=== PATIENT | male | born 1940 | race Caucasian/White ===

== ENCOUNTER 2017-01-10 16:00 | Emergency (ER) | payer OTHER, MEDICARE ==
[~2017-01-10] VITALS: Ht 193 cm; Wt 95.0 kg
[~2017-01-10 16:00] MED LIST: CIPR500T2 PO; DARV PO; GLUCTAB47 PO; LORC10TA PO; MEDR4PAK3 PO; MELA3TAB14; PIOG15 PO; PRIM250 PO; SAWPOW; STAR60TA PO; TAB-TAB PO
[2017-01-10 16:01] VITALS: BP 142/68; PULSE 64; RESP 20; TEMP 98.1; O2SAT 96
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
[2017-01-10] MEDS ORDERED: FINA5TAB2 PO (16:37)
[2017-01-10] MEDS ORDERED: CENTCHW3 (16:37)
[2017-01-10] MEDS ORDERED: L-THPOW (16:37)
[2017-01-10] MEDS ORDERED: SAW80CAP2 (16:37)
[2017-01-10] MEDS ORDERED: TAMS0.4C4 PO (16:37)
[2017-01-10] MEDS ORDERED: PROP60TA PO (16:37)
[2017-01-10] MEDS ORDERED: PRIM250 PO (16:37)
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
[2017-01-10] MEDS ORDERED: TRAM50TA PO (18:14)
== END 2017-01-10 19:18 | disposition home or self-care (01) ==
LOC: NEPD 16:00
DX: S20.211A Contusion of right front wall of thorax, initial encounter (principal); V49.40XA Driver injured in collision with unspecified motor vehicles in traffic accident, initial encounter
CPT/HCPCS: 71020; 99283